=== PATIENT | male | born 1980 | race Caucasian/White ===

== ENCOUNTER 2023-12-07 15:48 | Outpatient (CLI) | payer OTHER, SELFPAY | END 2023-12-07 15:49 | disposition home or self-care (01) | PROVIDERS: Visit Provider Internal Medicine | DX: I10 Essential (primary) hypertension (principal); R53.83 Other fatigue; R53.1 Weakness | CPT/HCPCS: 80053; 82306; 84443 ==

== ENCOUNTER 2024-01-09 16:15 | Outpatient (CLI) | payer OTHER, SELFPAY | END 2024-01-09 16:16 | disposition home or self-care (01) | PROVIDERS: PCP Internal Medicine; Visit Provider Internal Medicine | DX: R53.83 Other fatigue (principal) | CPT/HCPCS: 86039; 86200; 86431 ==

== ENCOUNTER 2024-02-22 14:56 | Outpatient (CLI) | payer OTHER, SELFPAY ==
--- NOTE | 2024-03-07 13:30 | W.PM.SLEEP ---
Sleep Study Details Details Interpreting Provider: Negra Date of Sleep Study: 02/22/24 Sleep Study Details: STUDY TYPE:? Home unattended ? BMI:? Not recorded ORDERING PROVIDER:Ruba Domingo INDICATION:? Concern about sleep apnea ? SLEEP SUMMARY:? 528 minutes monitored RESPIRATORY SUMMARY:? AHI 20.7. Positional data not available Low oxygen 80 2.9% of study oxygen less than 90% Snoring 94.9% PERIODIC LIMB MOVEMENTS OF SLEEP:? Not recorded CARDIAC:? Mean heart rate 68.2 (note a heart rate of 255 was recorded but this may be artifactual in the sleep lab is currently investigating. ) IMPRESSION:? A moderate obstructive sleep apnea RECOMMENDATION: Treatment options include CPAP, dental appliance, possibly weight loss and/or airway expansion surgery.
== END 2024-02-22 14:57 | disposition home or self-care (01) ==
PROVIDERS: Visit Provider Internal Medicine
DX: G47.33 Obstructive sleep apnea (adult) (pediatric) (principal)
CPT/HCPCS: 95806

== ENCOUNTER 2025-04-25 08:54 | Outpatient (CLI) | payer OTHER, SELFPAY | END 2025-04-25 08:55 | disposition home or self-care (01) | LOC: NFLDUCREF 08:56 | PROVIDERS: PCP Internal Medicine; Visit Provider Physician Assistant | DX: L08.9 Local infection of the skin and subcutaneous tissue, unspecified (principal); Z11.9 Encounter for screening for infectious and parasitic diseases, unspecified | CPT/HCPCS: 87468; 87469; 87484; 87798 ==

== ENCOUNTER 2025-07-26 09:21 | Day surgery (SDC) | payer OTHER, SELFPAY ==
[2025-07-26] VITALS (19 sets, daily range): BP systolic 140–192; BP diastolic 96–128; PULSE 66–90; RESP 11–20; TEMP 36.5–37.1; O2SAT 92–100; BMI 28.0
[2025-07-26] MEDS: LACTATED RINGERS 1000 ML 1,000 ML 100 ML IV ×2 (10:00→13:30)
[2025-07-26] MEDS: SODIUM CHLORIDE 0.9 % (FLUSH) 10 ML SYRINGE IVF (10:00)
[2025-07-26] MEDS: OXYMETAZOLINE 0.05% NASAL SPRAY 2 SPRAY NOSTRIL-B (10:00)
[2025-07-26] MEDS: MUPIROCIN 1 GM PACKET 1 APPLIC TOPICAL (11:45)
[2025-07-26] MEDS: BUPIVACAINE 0.5%/EPINEPHRINE 0.9 MG (30.9 ML) INJECTION (11:50)
--- NOTE | 2025-07-26 11:51 | W.PM.ENTPROC ---
Procedure Note Date of procedure: 07/26/25 Procedure: Preoperative diagnosis deviated septum nasal obstruction Postoperative diagnosis same Procedure nasal septoplasty Under general tracheal anesthesia patient was prepped and draped usual fashion nose decongested and injected. A right hemitransfixion incision was made anteriorly and on the left side an inferior posterior more posterior hemitransfixion was made at the septum was sitting diagonally. These 2 incisions were connected. Mucosal flap was elevated on the left side. The anterior portion of the septum was quite tortuous and a piece of this was removed about 2 mm in with. The eye a right anterior tunnel was also created. This allowed the septum to moved to midline. A piece of septal cartilage was placed in the columella for extra support as. Dissection was carried back on the left side to the left spur that was resected. A large piece of cartilage in bone was trimmed and returned to intraseptal space. Both hemitransfixion incisions were closed with a 5 0 fast-absorbing Vicryl. Silastic stents were secured with 3-0 nylon. Nasal airways were trimmed and then placed. The patient procedure well was taken recovery in satisfactory condition. Blood loss was 35 mL. Surgeon: Carl Omer MD
--- NOTE | 2025-07-26 12:07 | P.ANES_ITS ---
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
--- NOTE | 2025-07-26 12:07 | W.ANESCHARGE ---
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
[2025-07-26] MEDS: ACETAMINOPHEN 325 MG TABLET PO (12:55)
[2025-07-26] MEDS: IBUPROFEN 200 MG TABLET PO (12:55)
[2025-07-26] MEDS: HYDRALAZINE HCL 20 MG/ML inj 10 MG IVP (13:30)
== END 2025-07-26 14:40 | disposition home or self-care (01) ==
LOC: OR 09:22
PROVIDERS: PCP Internal Medicine; Visit Provider Otolaryngology
PROC: (CPT 30520; principal; 2025-07-26 10:45)
DX: J34.2 Deviated nasal septum (principal); J34.89 Other specified disorders of nose and nasal sinuses
CPT/HCPCS: 30520; 00160; A7520; A9270; J0360; J1100; J2250; J2405; J2704; J3010; J3490; J7120